=== PATIENT | male | born 1970 | race Caucasian/White ===

== ENCOUNTER → 2025-08-15 | Outpatient (CLI) | payer SELFPAY ==
[~2025-08-15] MED LIST: ALBU90OI; ALBU90OI INH; ALBU90OI6 INH; AZIT250 PO; AZMANEX; CIPR500 PO; FAMO20 PO; HYDACE5 PO; IBUP800 PO; MECL25 PO; NAPR500 PO; TIOT18
[2025-08-15 19:09] LABS: Alanine Aminotransfer (ALT/SGP 21.0 U/L (12-78); Albumin, Blood 4.1 g/dL (3.4-5.0); Albumin/Globulin Ratio 1.1 (0.8-1.8); Anion Gap 6.0 mmol/L (3-11); Aspartate Aminotrans (AST/SGOT 19.0 U/L (12-37); Bilirubin, Total 0.6 mg/dL (0.1-1.0); Blood Urea Nitrogen 19.0 mg/dL (8-24); CO2, Blood 29.0 mmol/L (21-32); Calcium, Blood 8.9 mg/dL (8.5-10.1); Chloride, Blood 102.0 mmol/L (98-108); Creatinine, Blood 0.8 mg/dL (0.60-1.20); Globulin, Blood 3.8 g/dL (2.2-4.0); Glucose, Blood 98.0 mg/dL (70-99); Potassium, Blood 3.0 mmol/L (3.5-5.5); Sodium, Blood 134.0 mmol/L (136-145); Total Protein, Blood 7.9 g/dL (6.4-8.2)
== END ==
LOC: LAB 14:21 → LAB SHORT 14:21
PROVIDERS: Student in an Organized Health Care Education/Training Program
DX: B35.1 Tinea unguium (principal)
CPT/HCPCS: 80053